=== PATIENT | female | born 2000 | race Caucasian/White ===

== ENCOUNTER 2025-07-23 15:35 | Outpatient (CLI) | payer OTHER, SELFPAY ==
--- NOTE | ~2025-07-23 | MR_ITS ---
EXAMINATION: MR brain IAC wo/w con DATE: 07/23/2025 16:55 INDICATION: Sudden right-sided hearing loss. TECHNIQUE: Magnetic resonance imaging (MRI) of the brain, brainstem, and internal auditory canals was performed without and with 12 mL MultiHance intravenous contrast. COMPARISON: None. FINDINGS: There is no intracranial hemorrhage, acute infarction, or abnormal intracranial mass lesion. The ventricles are normal in size. The internal auditory canals, inner ears, tympanic cavities, and mastoid air cells are normal. IMPRESSION: 1. Normal brain. Reviewed, dictated and finalized at location E. IMPRESSION: 1. Normal brain.
--- OUTSIDE RECORDS SUMMARY | 2025-07-23 15:41 | XMS_ITS | Clinical Summary ---
Author Organization [facility] [id number] [facility] Address [address] [place] [address] Care Team Providers Care Pen Maker Name Role Phone Ashlie Faulkner [employer]ODU[employer] MAKER Primary Care Provider + Allergies No known active allergies Medications cefdinir (OMNICEF) 300 mg capsule Take 1 capsule (300 mg total) by mouth every 12 (twelve) hours Active ciprofloxacin-d exAMETHasone (CIPRODEX) otic suspension SHAKE LIQUID AND INSTILL 4 DROPS TO AFFECTED EAR TWICE DAILY FOR 7 DAYS Active HYDROcodone-himanshu taminophen (NORCO) 7.5-325 mg per tablet Active ISOtretinoin (Amnesteem) 40 mg capsule TAKE 1 CAPSULE BY MOUTH ONCE DAILY WITH FATTY FOOD Active meclizine (ANTIVERT) 25 mg tablet Take 1 tablet (25 mg total) by mouth 3 (three) times a day as needed 4 Active methylPREDNISol one (MEDROL DOSEPACK) 4 mg Dosepack FOLLOW PACKAGE DIRECTIONS 5 Active ofloxacin (FLOXIN) 0.3 % otic solution INSTILL 10 DROPS TO AFFECTED EAR DAILY Active semaglutide (OZEMPIC) 0.25 mg or 0.5 mg(2 mg/1.5 mL) pen injector injection 3 Active Active Problems Problem Noted Date Diagnosed Date Dysfunction of right eustachian tube 06/17/2024 Anemia 08/27/2023 Indigestion 07/17/2023 Obese 07/17/2023 Encounters Date Type Department Care Team Description 05/21/[address] [facility] Medicine Otolaryngology [address] [place] [address] Maryanne Keller MS 05/06/[address] [facility] Medicine Otolaryngology [address] [facility], [address] [place] [address] Ena Ramos Au.D. from Last 3 Months Surgical History Surgery Date Site/Laterality Comments MYRINGOTOMY W/ TUBES 11/04/2024 - 11/03/2025 N/A REDUCTION MAMMAPLASTY 11/04/2018 - 11/03/2019 N/A WISDOM TOOTH EXTRACTION 11/04/2018 - 11/03/2019 N/A Medical History Medical History Date Comments Dizziness May 2024 HL (hearing loss) May 2024 Tinnitus May 2024 Social History Tobacco Use Types Packs/Day Years Used Date Smoking Tobacco: Never Assessed Comments Unknown Sex and Gender Information Value Date Recorded Sex Assigned at Not on file Legal Sex Female 10:22 AM CDT Gender Identity Not on file Sexual Orientation Not on file Obstetrics History Plan of Treatment Health Maintenance Due Date Last Done Comments Cervical Cancer Screening 2001 Chlamydia and Gonorrhea (GC/ CT) Screening 2001 Depression Screening 2001 Hepatitis C Screening 2001 Regular Well Visit/Exam 18-64 2019 Influenza Vaccine (#1) 2025 DTaP/Tdap/Td Vaccine (8 - Td or Tdap) 05/11/2034 05/11/2024, 06/07/2012, 04/29/2006, Additional history exists Hepatitis B Screening Completed 2002 , 2001, 2001 Pneumococcal vaccine <65 Completed 003, 2001, 2001, Additional history exists Varicella Vaccines Completed 08/19/2012, 2002 HPV Vaccines Completed 12/22/2012, 08/04, 06/19/2012 Insurance [facility] CHOICE PLUS Member Subscriber Plan / Payer (Ef fective 2022-Present) Name:Kalee Briggs Relation to Subscriber:Child Name:CAMILO BRIGGS Date of :1970 Address: [address] [place] [address] Payer ID:[id number] ([facility]) Type:[facility] HMO/PPO Address: [address] [place] [address] [facility] CHOICE PLUS Member Subscriber Plan / Payer (Ef fective 2024-) Name:Una Briggsh Relation to Subscriber:Child Name:LEANDRA BRIGGS Date of :1970 (Home) Address: [address] [place] [address] Payer ID:[id number] ([facility]) Type:[facility] HMO/PPO Address: [place] [address] [facility] CHOICE PLUS Member Subscriber Plan / Payer (Ef fective 2022-Present) Name:Una Briggsh Relation to Subscriber:Child Name:CAMILO BRIGGS Date of :1969 Address: [address] [place] [address] Payer ID:[id number] ([facility]) Type:[facility] HMO/PPO Address: [facility] [address] [place] [address] Care Teams Pen Maker Relationship Specialty Start Date End Date Ashlie Faulkner NP [address] [place] [id number] PCP - General Nurse Practitioner 04/08/25
--- OUTSIDE RECORDS SUMMARY | 2025-07-23 15:41 | XMS_ITS | Clinical Summary ---
Author Organization [facility] Address [address] [place] [id number] Care Team Providers Care Carbide Die Maker Name Role Phone Unavailable Primary Care Provider Unavailabl e Social History Tobacco Use Types Packs/Day Years Used Date Smoking Tobacco: Never Assessed Comments Unknown Sex and Gender Information Value Date Recorded Sex Assigned at Not on file Legal Sex Female 8:11 PM CDT Gender Identity Not on file Sexual Orientation Not on file Plan of Treatment Health Maintenance Due Date Last Done Comments Cervical Cancer Screening Pa p Smear (Age 21 to 29) Every 3 Years 2001 Cervical Cancer Screening 2001 Annual Physical 2004 HPV Vaccines (1 - 3-dose series) 2016 Hepatitis C 2019 DTaP, Tdap and Td Vaccines ( 1 - Tdap) 2020 Hepatitis B Vaccines (1 of 3 - 19+ 3-dose series) 2020 COVID-19 Vaccine (2023-2 5 season) 2025 Meningococcal B Vaccine Aged Out No l onger eligible based on patient's age to complete this topic Meningococcal Vaccine Aged Out No ricci tomás eligible based on patient's age to complete this topic Pneumococcal Vaccine: Pediat rics (0 to 5 Years) and At-Risk Patients (6 to 49 Years) Aged Out No longer eligible b ased on patient's age to complete this topic RSV Immunizations Under 20 Months Aged Out No longer eligible based on patient's age to complete this topic
--- OUTSIDE RECORDS SUMMARY | 2025-07-23 15:41 | XMS_ITS | Clinical Summary ---
Author Organization [facility] Address [address] [place] [address] Care Team Providers Care Bleach Maker Name Role Phone Camilo Staton MD Primary Care Provider Source Comments [facility],non-owned Affiliates and Associated Physician Practices is amultiple site organization consisting of ambulatory clinics and hospital sitesin [place], [place], [place] and [place]. This disclosure is being madepursuant to the Care Everywhere program and may not contain all information available regarding this patient. Last updated 18.[facility] [employer] Social History Tobacco Use Types Packs/Day Years Used Date Smoking Tobacco: Never Assessed Comments Unknown Sex and Gender Information Value Date Recorded Sex Assigned at Not on file Legal Sex Female 4:13 AM CDT Gender Identity Not on file Sexual Orientation Not on file Plan of Treatment Health Maintenance Due Date Last Done Comments HIV SCREENING 2016 HPV VACCINE (1 - 3-dose series) 2016 CHLAMYDIA/GONORRHEA SCREENING 2017 HEPATITIS C SCREENING 06/14/2019 DTAP/TDAP/TD VACCINES (1 - Tdap) 2020 HEPATITIS B VACCINE (1 of 3 - 19+ 3-dose series) 2020 DEPRESSION SCREENING 11/04/2024 COVID-19 VACCINE (1 - 2023-2 5 season) 2025 INFLUENZA VACCINE (#1) 2025 ZOSTER VACCINE (1 of 2) 2051 HIB VACCINE Aged Out No longer eligi ble based on patient's age to complete this topic MENINGOCOCCAL (Group B) VACC INE SHARED DECISION-MAKING Aged Out No longer eligibl e based on patient's age to complete this topic MENINGOCOCCAL GROUPS A/C/Y/W VACCINE Aged Out No longer eligible b ased on patient's age to complete this topic PNEUMOCOCCAL VACCINE Aged Out No long er eligible based on patient's age to complete this topic Insurance [facility] [place] [address] [place] [address] Care Teams Bleach Maker Relationship Specialty Start Date End Date Camilo Staton MD [address] [place] [id number] PCP - General 04/06/19
== END 2025-07-23 15:36 | disposition home or self-care (01) ==
PROVIDERS: PCP Nurse Practitioner Family
DX: H91.20 Sudden idiopathic hearing loss, unspecified ear (principal)
CPT/HCPCS: 70553; A9577